=== PATIENT | female | born 1955 | race Caucasian/White ===

== ENCOUNTER 2020-03-05 09:50 | Emergency (ER) | payer OTHER ==
--- NOTE | 2020-03-05 10:47 | TELE ---
HPI Do you have fever,cough or shortness of breath?: No - General Reason For Visit: COVID 19 TEST History Source: Patient Exam Limitations: No Limitations (64-year-old female denies past medical history) - History of Present Illness 03/05/20 10:45 64-year-old female denies past medical history arrived from [place] 4 days ago after being there since October 12, 2019. She had a negative COVID IgG and IgM blood test 8 days ago. Denies fever, cough, shortness of breath, chest pain, abdominal pain, body aches or any other symptoms. However requesting a COVID swab. Discharge Diagnosis at time of Disposition: Counseled about COVID-19 virus infection, COVID-19 ruled out by laboratory testing - Referrals - Patient Instructions Additional Discharge Instructions: You will be contacted with your COVID results as soon as they become available If you develop fever alternate between ibuprofen and acetaminophen every 6 hours as needed If you develop any other concerning symptoms you may contact the ED or present to the ED for further evaluation - Discharge Disposition: HOME Condition at time of Disposition: Stable
== END 2020-03-05 13:00 | disposition home or self-care (01) ==
LOC: JVIRT 09:50
DX: Z11.59 Encounter for screening for other viral diseases (principal)
CPT/HCPCS: C9803; Q3014-GT; U0003